=== PATIENT | male | born 1990 | race Caucasian/White ===

== ENCOUNTER 2016-07-12 18:24 | Emergency (ER) | payer MEDICAID ==
[~2016-07-12 18:24] MED LIST: ACCUTANE; ACETAMINOPHEN PO; ALBUTEROL17 GM INH; ANUSOL SUPP1 SUPP PR; ASMANEX0.135 G1; BENZACLIN GEL50 GM TOP; CIPRO PO; CLEOCIN PO; DICLOFENAC PO; DULCOLAX5 MG PO; DULERA 200 MCG/13 GM IH; FLOVENT7.9 GM; INDERAL20 MG; LEVAQUIN PO; MINOCIN PO; MUCINEX DM ER1 EACH PO; MUCINEX DM1 TAB.SR . PO; NASONEX17 GM; REQUIP XL2 MG; SEROQUEL PO; VISTARIL PO; VOLTAREN75 MG PO; WELLBUTRIN; ZOFRAN PO; [UNRECOGNIZED DRUG - OTHER]
== END 2016-07-12 18:30 | disposition home or self-care (01) ==
LOC: SED 18:24
DX: R68.84 Jaw pain (principal); F17.210 Nicotine dependence, cigarettes, uncomplicated; Z91.040 Latex allergy status; Z91.011 Allergy to milk products; Z91.018 Allergy to other foods; Z91.048 Other nonmedicinal substance allergy status; Z79.899 Other long term (current) drug therapy; Z87.828 Personal history of other (healed) physical injury and trauma
CPT/HCPCS: 99282